=== PATIENT | female | born 1950 | race Caucasian/White ===

== ENCOUNTER → 2016-11-16 | Outpatient (CLI) | payer OTHER, BC ==
[~2016-11-16] MED LIST: ATEN-173 PO; CALC500C50 PO; CITA10TA8 PO; ESTCR PV; HYDR25TA5 PO; MULT-506 PO; NAPR220T PO; OMEP20CA9 PO
[2016-11-16 16:39] LABS: ALT/SGPT 31 U/L (12-78); BLOOD UREA NITROGEN 17 mg/dl (7-18); BUN/CREATININE RATIO 17.9 (10-20); CALCIUM 8.8 mg/dl (8.5-10.1); CARBON DIOXIDE 31 mmol/L (21-32); CHLORIDE 106 mmol/L (98-107); CHOLESTEROL 151 mg/dl (0-200); CREATININE 0.94 mg/dl (0.60-1.20); GLUCOSE 126 mg/dl (70-99); POTASSIUM 3.6 mmol/L (3.5-5.1); SODIUM 143 mmol/L (136-145)
[2016-11-16 16:42] LABS: ALB/GLOB RATIO 1.1 (0.9-2); ALKALINE PHOSPHATASE 88 U/L (45-117); AST/SGOT 21 U/L (15-37); CHOLESTEROL/HDL RATIO 2.7; HDL CHOLESTEROL 55 mg/dl; LDL CHOLESTEROL CALCULATED 65 mg/dl; TRIGLYCERIDES 153 mg/dl (0-150); VERY LOW DENSITY LIPOPROT CALC 31 mg/dl
[2016-11-17 06:02] LABS: ESTIMATED AVERAGE GLUCOSE 134 mg/dl; HA1C FLAG Normal (Normal)
--- NOTE | 2016-11-21 11:34 | CODING QUERY MEDICAL NECESSITY ---
SUPPORTING DIAGNOSIS NEEDED A supporting diagnosis is required for the test/procedure performed on this patient in order for us to be reimbursed by the patient's insurance. Please provide a supporting diagnosis for the following test/procedure listed below next to the test name along with your signature. *If there is no additional diagnosis for this patient that would support the following test/procedure please document that below next to the test/procedure. Test(s)/Procedure(s) that require a supporting diagnosis: DOS 11/16 * Hba1c DIAGNOSIS: Provider Signature: Date: Thank you Heather [facility] Once completed, please kindly fax back to [phone] For questions please call [phone]
== END | disposition home or self-care (01) ==
LOC: C.LABBFT 11:39
PROVIDERS: ATTEND Family Medicine
DX: E78.5 Hyperlipidemia, unspecified (principal); R73.03 Prediabetes; I10 Essential (primary) hypertension; Z11.59 Encounter for screening for other viral diseases

== ENCOUNTER → 2017-08-23 | Outpatient (CLI) | payer OTHER, BC ==
[2017-08-23 16:27] LABS: BASO % 0.7 %; BASO ABS # 0.04 K/uL (0-0.2); EOS % 4.6 %; EOS ABS # 0.28 K/uL (0-0.5); HEMATOCRIT 40.5 % (37-47); HEMOGLOBIN 13.3 g/dL (12.0-16.0); IG# 0.02 K/uL (0.00-0.02); LYMPH % 27.4 %; LYMPH ABS # 1.65 K/uL (1.2-3.4); MEAN CELL VOLUME 91.2 fL (80-100); MEAN CORPUSCULAR HGB CONC 32.8 g/dl (32-36); MEAN PLATELET VOLUME 11.5 fL (7.4-10.4); MONO % 5.8 %; MONO ABS # 0.35 K/uL (0.11-0.59); NEUT % 61.2 %; NEUT ABS # 3.69 K/uL (1.4-6.5); PLATELET COUNT 222 K/uL (130-400); RED CELL DISTRIBUTION WIDTH CV 13.2 % (11.5-14.5); RED CELL DISTRIBUTION WIDTH SD 43.5 fL (36.4-46.3); WHITE BLOOD COUNT 6.03 K/uL (4.8-10.8)
[2017-08-23 16:35] LABS: ALBUMIN 3.4 gm/dl (3.4-5.0); ALT/SGPT 29 U/L (12-78); BLOOD UREA NITROGEN 13 mg/dl (7-18); CARBON DIOXIDE 30 mmol/L (21-32); CHOLESTEROL 121 mg/dl (0-200); CREATININE 0.87 mg/dl (0.60-1.20); GLUCOSE 118 mg/dl (70-99); POTASSIUM 3.9 mmol/L (3.5-5.1); SODIUM 140 mmol/L (136-145)
[2017-08-23 16:38] LABS: ALKALINE PHOSPHATASE 89 U/L (45-117); AST/SGOT 28 U/L (15-37); LDL CHOLESTEROL CALCULATED 39 mg/dl; TOTAL PROTEIN 6.7 gm/dl (6.4-8.2)
[2017-08-24 06:30] LABS: HEMOGLOBIN A1C 6.5 % (4.5-5.6)
== END | disposition home or self-care (01) ==
LOC: C.LABBFT 13:14
PROVIDERS: ATTEND Physician Assistant Medical
DX: I10 Essential (primary) hypertension (principal); E78.5 Hyperlipidemia, unspecified; R73.03 Prediabetes; K21.9 Gastro-esophageal reflux disease without esophagitis

== ENCOUNTER → 2017-08-27 | Outpatient (CLI) | payer OTHER, BC ==
--- NOTE | 2017-08-27 11:15 | DIAGNOSTIC IMAGING REPORT ---
LEFT LOWER EXTREMITY VENOUS DOPPLER CLINICAL HISTORY: Left lower extremity pain following fall. COMPARISON STUDY: No previous studies for comparison. TECHNIQUE: Sonography of the deep venous system of the left lower extremity was performed. Compression and augmentation were evaluated. FINDINGS: The left common femoral, superficial femoral and popliteal veins were compressible. Augmentation was normal. Flow was shown within the deep calf vessels. Note was made of an 8.9 cm subcutaneous focus of increased echogenicity within the medial left calf at site of trauma. IMPRESSION: 1. No evidence of deep venous thrombus within the left lower extremity. 2. 8.9 cm subcutaneous focus of increased echogenicity of the medial left calf at site of trauma which suggests a contusion. Electronically signed by: Maxime Jha M.D. 08/27/2017 11:14 AM Dictated Date/Time: 08/27/2017 11:13 AM
== END | disposition home or self-care (01) ==
LOC: C.ULTRBC 10:48
PROVIDERS: ATTEND Physician Assistant Medical
DX: M79.605 Pain in left leg (principal); W19.XXXA Unspecified fall, initial encounter

== ENCOUNTER → 2017-11-21 | Outpatient (CLI) | payer OTHER, BC ==
[2017-11-21 13:11] LABS: HEMOGLOBIN A1C 6.2 % (4.5-5.6)
== END | disposition home or self-care (01) ==
LOC: C.LABBFT 10:40
PROVIDERS: ATTEND Physician Assistant Medical
DX: R73.03 Prediabetes (principal)

== ENCOUNTER 2018-09-29 05:19 | Observation (INO) ==
--- NOTE | 2018-09-12 09:14 | PAT Medication Instructions ---
Medication Instructions Date of Service September 12, 2018 Home Medications bcsxeyj-hpuvqtxlzkzto-ikxjhvbv 2 tab PO Q6H NEEDED atenolol 25 mg PO QPM atorvastatin [Lipitor] 10 mg PO PM calcium carbonate [Tums Ultra] 400 mg PO QPM citalopram [Celexa] 20 mg PO QAM estradiol [Estrace] 1 g VAGINAL WK hydrochlorothiazide 25 mg PO QAM ibuprofen 200 mg PO QID NEEDED multivitamin, stress formula 1 tab PO QDD naproxen sodium [Aleve] 220 mg PO BID NEEDED omeprazole 20 mg PO QAM Continue as directed estradiol [Estrace] 1 g VAGINAL WK ASK your surgeon for instructions xwaphqz-soitzaghjjrix-iejxcxxs 2 tab PO Q6H NEEDED ibuprofen 200 mg PO QID NEEDED naproxen sodium [Aleve] 220 mg PO BID NEEDED DO NOT take the morning of surgery hydrochlorothiazide 25 mg PO QAM Take morning of surgery With a small sip of water, OTHERWISE NOTHING TO EAT OR DRINK AFTER MIDNIGHT: omeprazole 20 mg PO QAM citalopram [Celexa] 20 mg PO QAM Take evening before surgery multivitamin, stress formula 1 tab PO QDD atenolol 25 mg PO QPM atorvastatin [Lipitor] 10 mg PO PM calcium carbonate [Tums Ultra] 400 mg PO QPM Other Notes If you have any questions please call us at [phone] or [phone] or [phone] or [phone]
--- NOTE | 2018-09-12 10:49 | Anesthesiology Consultation ---
Date of Service September 12, 2018 Assessment & Plan (1) Encounter for pre-operative examination: Chart Review Chart Review: Acceptable Risk for Surgery and Patient seen in Pre Admission Testing Consults Requested none Teaching & Discussion Pre-Anesthesia Teaching/Discussion Notes: Instructed NPO after midnight before surgery, except medications with 15 cc of water. Medication instructions provided according to the PAT guidelines. History Surgery Operation Date: 09/29/18 07:00 Proposed Procedures p Laparoscopic Ventral Hernia Repair - Robin Egan MD, FACS Height/Weight Height: 5 ft 1 in Weight: 97.1 kg Allergies Allergy/AdvReac Type Severity Reaction Status Date / Time Penicillins Allergy Intermediate "turns red" Verified 09/08/18 13:44 shellfish derived Allergy Intermediate throat Verified 09/08/18 13:44 swelling hydrocodone Allergy Unknown ITCHY Verified 09/08/18 13:44 lisinopril [From Prinivil] AdvReac Unknown Cough Verified 09/08/18 13:44 Medications Home Medications Medication Instructions Recorded Confirmed Last Taken rnliboc-fraeihsndzwuh-ebzfirrk 2 tab PO Q6H PRN 09/08/18 09/08/18 Unknown [Excedrin Extra Strength] atenolol 25 mg PO QPM 09/08/18 09/08/18 Unknown atorvastatin [Lipitor] 10 mg PO PM 09/08/18 09/08/18 Unknown calcium carbonate [Tums Ultra] 400 mg PO QPM 09/08/18 09/08/18 Unknown citalopram [Celexa] 20 mg PO QAM 09/08/18 09/08/18 Unknown estradiol [Estrace] 1 g VAGINAL WK 09/08/18 09/08/18 Unknown hydrochlorothiazide 25 mg PO QAM 09/08/18 09/08/18 Unknown ibuprofen 200 mg PO QID PRN 09/08/18 09/08/18 Unknown multivitamin, stress formula 1 tab PO QDD 09/08/18 09/08/18 Unknown naproxen sodium [Aleve] 220 mg PO BID PRN 09/08/18 09/08/18 Unknown omeprazole 20 mg PO QAM 09/08/18 09/08/18 Unknown Past Medical History Medical History Anxiety GERD (gastroesophageal reflux disease) Hypertension Pre-diabetes Past Surgical History Surgical History History of section History of hysterectomy NAGI BSO History of laparotomy 1 week after due to peritonitis History of open reduction and internal fixation (ORIF) procedure L ANKLE Hx of appendectomy Hx of cholecystectomy Hx of tonsillectomy Past Anesthesia History No Hx of Anesthesia Complications and No Family Hx of Anesthesia Complications History of PONV No Motion Sickness Screening History of Motion Sickness: No Social History Smoking Status: Never smoker Do You Dip or Chew Tobacco: No Hx Alcohol Use: Yes Alcohol type: wine alcohol intake frequency: a few times a week Hx Substance Use: No substance use type: does not use Exercise / Class Metabolic Activity II 4-5 Yardwork/Stairs/Walk up hill (Able to climb FOS. Denies CP or SOB ( unless carrying heavy objects while climbing stairs).) Review of Systems Patient denies chest pain, shortness of breath, dyspnea on exertion, reflux, cough, wheezing, palpitations. + joint pain (right hip bursitis occasionally) Physical Exam Vital Signs BP: 110/71 P: 57 R: 16 T: 98.5 SPO2: 95% on RA Constitutional + obese ENMT Thyromental Distance: < 3.5 Finger Breadths (3) Mallampati Class: I Neck normal visual inspection and trachea midline; neck extension not limited Respiratory normal respiratory effort Auscultation: lungs clear to auscultation bilaterally Cardiovascular Rate/Rhythm: regular rate and regular rhythm Heart Sounds: no murmur Vessels: no carotid bruit Neurologic moves all extremities Psychiatric Orientation: alert and oriented x 3 Testing Electrocardiogram Date: 09/12/18 Findings: + NSR @ (60) and + no change from (02/20/15) Chest X-Ray Date: 09/12/18 Findings: + NAD Other Testing CT OF THE ABDOMEN AND PELVIS WITH CONTRAST 08/19/18 IMPRESSION: 1. Upper ventral hernia which contains a small portion of transverse colon. No resultant bowel obstruction. 2. Small fat-containing supraumbilical hernia and umbilical hernias. 3. Fatty infiltration of the liver. 4. Small hiatal hernia. Laboratory Results 09/12/18 11:07 09/12/18 11:07
--- NOTE | 2018-09-12 11:27 | XRay Report ---
XR chest Pre-admission PA/Lat CLINICAL HISTORY: PAT preoperative evaluation COMPARISON STUDY: 02/20/2015 FINDINGS: The bones soft tissues and hemidiaphragms are normal. The cardiomediastinal silhouette is n ormal. The lungs are clear. The pulmonary vasculature is normal. IMPRESSION: Negative chest. The above report was generated using voice recognition software. It may contain grammatical, syntax or spelling errors. Electronically signed by: Ravi Fox M.D. 09/12/2018 11:26 AM
[2018-09-12 11:56] LABS: Basophils # (auto) 0.04 K/uL (0-0.2); Basophils % (auto) 0.6 %; Eosinophils # (auto) 0.17 K/uL (0-0.5); Eosinophils % (auto) 2.7 %; Hematocrit (blood only) 42.8 % (37-47); Immature Granulocytes # (auto) 0.01 K/uL (0.00-0.02); Immature Granulocytes % (auto) 0.2 %; Lymphocytes # (auto) 1.48 K/uL (1.2-3.4); Lymphocytes % (auto) 23.8 %; Mean Corpuscular Hgb Conc 32.7 g/dL (32-36); Mean Corpuscular Volume 90.5 fL (80-100); Mean Platelet Volume 11.8 fL (7.4-10.4); Monocytes # (auto) 0.45 K/uL (0.11-0.59); Monocytes % (auto) 7.2 %; Neutrophils # (auto) 4.08 K/uL (1.4-6.5); Neutrophils % (auto) 65.5 %; Platelet Count 209 K/uL (130-400); RDW Coefficient of Variation 13.1 % (11.5-14.5); RDW Standard Deviation 43.2 fL (36.4-46.3); Red Blood Count 4.73 M/uL (4.2-5.4); White Blood Count 6.23 K/uL (4.8-10.8)
[2018-09-12 12:06] LABS: Calcium 8.8 mg/dl (8.5-10.1); Creatinine Clr Calc Pharmacy 61.5 ml/min; Est GFR (African American) 73.6; Est GFR (Non-African American) 63.5; Potassium 3.7 mmol/L (3.5-5.1)
[2018-09-29] MEDS ORDERED: CLINDAMYCIN 900 MG / 50ML D5W IV SCH (06:00)
[2018-09-29] MEDS ORDERED: LR 15ML/HR IV SCH (06:00)
[2018-09-29] MEDS ORDERED: PROPOFOL IV EMULSION 10 MG/ML 20 ML VIAL IV ONE (06:44)
[2018-09-29] MEDS ORDERED: NEOSTIGMINE METHYLSULFATE 5 MG/5 ML SYR ONE (06:44)
[2018-09-29] MEDS ORDERED: DEXAMETHASONE SOD INJ 4 MG/ML VIAL ONE (06:44)
[2018-09-29] MEDS ORDERED: GLYCOPYRROLATE 0.2 MG/ML VIAL ONE ×2 (06:44→08:01)
[2018-09-29] MEDS ORDERED: LIDOCAINE HCL 2% 2 ML VIAL/AMP(20MG/ML) INFIL ONE (06:44)
[2018-09-29] MEDS ORDERED: ROCURONIUM BROMIDE 10 MG/ML 5 ML VIAL ONE (06:44)
[2018-09-29] MEDS ORDERED: ONDANSETRON INJ 2 MG/ML 2 ML VIAL ONE (06:44)
[2018-09-29] MEDS ORDERED: MIDAZOLAM HCL 1 MG/ML 2ML VIAL ONE (06:45)
[2018-09-29] MEDS ORDERED: fentaNYL citrate 100 MCG/2 ML VIAL ONE (06:45)
[2018-09-29] MEDS ORDERED: BUPIVACAINE 0.5 % 5 MG/1 ML MPF 30ML VIAL ONE (07:12)
[2018-09-29] MEDS ORDERED: FLUMAZENIL 0.1 MG/1 ML 10 ML VIAL IV PRN (07:46)
[2018-09-29] MEDS ORDERED: ePHEDrine sulfate 50 MG/ML AMP IV PRN (07:46)
[2018-09-29] MEDS ORDERED: NALOXONE HCL 0.4 MG/1 ML VIAL/CARP IV PRN (07:46)
[2018-09-29] MEDS ORDERED: fentaNYL citrate 100 MCG/2 ML VIAL IV PRN (07:46)
[2018-09-29] MEDS ORDERED: LABETALOL HCL IV 5 MG/ML 20ML IV PRN (07:46)
[2018-09-29] MEDS ORDERED: PROMETHAZINE HCL 12.5 MG in SODIUM CHLORIDE 0.9% 50 ML IV PRN ×2 (07:46→09:36)
[2018-09-29] MEDS ORDERED: ATROPINE SULFATE 0.1 MG/ML 10ML SYR IV PRN (07:46)
[2018-09-29] MEDS ORDERED: ONDANSETRON INJ 2 MG/ML 2 ML VIAL IV PRN ×2 (07:46→09:36)
[2018-09-29] MEDS ORDERED: KETOROLAC 30 MG/ML VIAL ONE (08:01)
--- NOTE | 2018-09-29 08:11 | Operative Report ---
Post Operative Report Pre & Post Diagnosis Operation Date: 09/29/18 07:00 Pre-Op Diagnosis: Ventral Hernia Post-Op Diagnosis: Ventral Hernia same Procedure Operation Date: 09/29/18 07:00 Actual Procedures p Laparoscopic Ventral Hernia Repair with Mesh(Not Applicable) - Robin Egan MD, FACS same Surgeon Robin Egan MD, FACS Field Installation Technician Dianne Solorio Estimated Blood Loss 20 Findings Consistent with Post-Op Diagnosis Specimens none Description of Procedure see dictated note I attest to the content of the Intraoperative Record and any orders documented therein. Any exceptions are noted below.
[2018-09-29] MEDS ORDERED: ACETAMINOPHEN 1,000 MG/100 ML VIAL IV ONE (08:15)
--- NOTE | 2018-09-29 08:40 | Operative Report ---
DATE OF OPERATION: 09/29/2018 NAME OF OPERATION: Laparoscopic ventral hernia repair with lysis of adhesions. PREOPERATIVE DIAGNOSIS: Ventral hernia. POSTOPERATIVE DIAGNOSIS: Same. STAFF SURGEON: Robin Egan MD MONITORING AND EVALUATION ADVISOR: Cyril Solorio PA-C ANESTHESIA: General. DESCRIPTION OF PROCEDURE: The patient was brought in the operating room and placed on the operating table in supine position. Her abdomen was prepped and draped in the usual fashion. Pneumatic stockings, orogastric tube were placed. Incision was made in the left upper quadrant using 0.5% plain Marcaine to anesthetize all incisions. Dissection was carried down to the fascia, placing a Veress needle producing pneumoperitoneum. An 11-mm port was placed at this level. At this point, a camera was passed. The patient did have tissue within the hernia sac which was suspected to be omentum and colon. There was a small area of adhesion cephalad which was taken down. I did place two 5-mm ports on the left side and right side under visualization. Then using both blunt and sharp dissection, lysis of adhesions was performed with some difficulty reducing the omentum and colon from the hernia sac. After this was completed, it appeared there was approximately a 3- to 4-cm defect. We chose a 12.5 cm piece of Surgimesh, placed it into the abdomen. The polypropylene was toward the fascia, the silicone toward the bowel. It was brought up to the defect using the suture passer through the hernia sac and the Prolene suture on the mesh. At this point, it was tacked in 2 rows, outer and inner using an absorbable tacker. With good placement, all ports were removed, the pneumoperitoneum reduced. The fascia in the left upper quadrant closed using 0 Vicryl suture, then the skin reapproximated using 5-0 Prolene and 4-0 nylon. My facility assistant, César, helped with prepping, draping, repair of the hernia, and closure of the wounds. I attest to the content of the Intraoperative Record and any orders documented therein. Any exception s are noted below.
--- NOTE | 2018-09-29 08:59 | Anesthesiology Progress Note ---
Date of Service September 29, 2018 Anesthesia Post Procedure Vital Signs Vital Signs: Temp Pulse Pulse Resp BP BP Pulse Ox 09/29/18 08:50 65 13 129/57 L 98 09/29/18 08:40 71 17 111/65 97 09/29/18 08:31 36.6 C 86 24 180/88 H 92 09/29/18 05:41 36.9 C 71 16 165/87 H 97 Pain Intensity Abdomen: Pain Intensity: 4 Notes Mental Status: alert / awake / arousable Patient Amnestic to Procedure: Yes Nausea / Vomiting: adequately controlled Pain: adequately controlled Airway Patency, RR, SpO2: stable & adequate BP & HR: stable & adequate Hydration State: stable & adequate Anesthetic Complications: no major complications apparent
[2018-09-29] MEDS ORDERED: HYDROmorphone INJ 0.5 MG/0.5 ML SYR IV PRN (09:36)
[2018-09-29] MEDS ORDERED: OXYCODONE/ACETAMINOPHEN 5mg/325mg TAB PO PRN (09:36)
[2018-09-29] MEDS ORDERED: hydroCHLOROthiazide 25 MG TAB PO SCH (09:36)
--- NOTE | 2018-09-29 10:14 | Consultation ---
Date of Consultation September 29, 2018 Assessment & Plan (1) Ventral hernia: - S/P Laparoscopic ventral hernia repair on 09/29 - EBL 20 cc - Pain management, DVT prophylaxis, surgical management per primary team Present on Admission?: Yes (2) Essential hypertension: - STABLE - Atenolol 25 mg daily; Hold HCTZ today until renal function assessed tomorrow and likely resume then Present on Admission?: Yes (3) Pre-diabetes: - Diet managed; Last A1c 6.3 - No intervention necessary at this time; recommend to continue monitoring with PCP Present on Admission?: Yes (4) GERD (gastroesophageal reflux disease): - STABLE; Protonix as omeprazole interchange Present on Admission?: Yes (5) Mixed hyperlipidemia: - Lipitor 10 mg daily Present on Admission?: Yes (6) Generalized anxiety disorder: - STABLE; Celexa 20 mg daily Present on Admission?: Yes (7) DVT prophylaxis: SCDs Dispo-likely dc to home tomorrow as per Surgery Supervising Physician Co-Signing Physician Notes PA Supervision Note: I personally saw and examined the patient. I verified all kwok points and agree with ZEINAB Mcmahon with the following exceptions and/or additions: Patient doing well postoperatively. Has minimal soreness in the abdomen. No chest pain or shortness of breath. History reviewed as above. No history of sleep apnea. Vitals reviewed Gen: AAOx3, NAD, obese HEENT: Anicteric sclerae, EOMI CV: RRR no mgr nl S1S2 Pulm: CTAB no wcr Abd: Hypoactive bowel sounds, soft NT ND no masses or hernias, multiple incision sites with dressings in place that are clean dry and intact Ext: No edema, 2+ DP pulses Skin: No rashes, warm/dry Neuro: Full strength throughout 68-year-old female with history as above, here with ventral hernia repair. Doing very well postoperatively Plan outlined as above Expect discharge likely in the next 1-2 days. Hospitalist service will follow along History of Present Illness Reason for Consultation: Medical Management Requesting Physician: Dr. Egan Attending Physician: Robin Egan MD, [facility] History of Present Illness Ms. Quintanilla is a 68 y/o female with PMHx of Pre-Diabetes, HTN, HLD, GERD, and General Anxiety Disorder who is S/P Lap Ventral Hernia Repair on 09/29. Currently she is pain free and tolerated some applesauce at this point. She has been dealing with this hernia for approx. 8 years and reports no pain or strangulation but continued to enlarge. She has diet controlled pre-diabetes which is being monitored by her PCP. Last A1c is 6.3. She denies history of cardiac conditions such as CO/CHF. Denies history of PE/DVT. She verbalizes no complaints at this time. Allergies Allergy/AdvReac Type Severity Reaction Status Date / Time Penicillins Allergy Intermediate "turns red" Verified 09/29/18 05:35 shellfish derived Allergy Intermediate throat Verified 09/29/18 05:35 swelling hydrocodone Allergy Unknown ITCHY Verified 09/29/18 05:35 lisinopril [From Prinivil] AdvReac Unknown Cough Verified 09/29/18 05:35 Home Medications Home Medications Medication Instructions Recorded Confirmed Type reqmvbi-ypewrmfrqqjmk-okxkebyk 2 tab PO Q6H PRN 09/08/18 09/29/18 History [Excedrin Extra Strength] atenolol 25 mg PO QPM 09/08/18 09/29/18 History atorvastatin [Lipitor] 10 mg PO PM 09/08/18 09/29/18 History calcium carbonate [Tums Ultra] 400 mg PO QPM 09/08/18 09/29/18 History citalopram [Celexa] 20 mg PO QAM 09/08/18 09/29/18 History estradiol [Estrace] 1 g VAGINAL WK 09/08/18 09/29/18 History hydrochlorothiazide 25 mg PO QAM 09/08/18 09/29/18 History ibuprofen 200 mg PO QID PRN 09/08/18 09/29/18 History multivitamin, stress formula 1 tab PO QDD 09/08/18 09/29/18 History naproxen sodium [Aleve] 220 mg PO BID PRN 09/08/18 09/29/18 History omeprazole 20 mg PO QAM 09/08/18 09/29/18 History Patient History Medical History Mixed hyperlipidemia Anxiety GERD (gastroesophageal reflux disease) Hypertension Pre-diabetes Surgical History History of section History of hysterectomy NAGI BSO History of laparotomy 1 week after due to peritonitis History of open reduction and internal fixation (ORIF) procedure L ANKLE Hx of appendectomy Hx of cholecystectomy Hx of tonsillectomy Family History Mother Diabetes Brother Diabetes Grandfather Cancer, colon Social History Preferred Language: Tajik Communication Ability: Effective Beliefs That Will Affect Care: None Current Living Situation: Spouse Current Living Situation Comment: [facility] Other Information That Helps Us Care for You: No Feels Safe at Home: Yes Safety Concerns: Feels Safe At This Time Smoking Status: Never smoker Hx Alcohol Use: Yes Hx Substance Use: No Review of Systems REVIEW OF SYSTEMS General/Constitutional: Denies fever/chills, fatigue, weakness ENT: Denies visual changes, nasal drainage, hearing loss, sore throat, trouble swallowing Cardiovascular: Denies chest pain, palpitations, edema Respiratory: Denies cough, sputum, SOB, wheezing, orthopnea GI: Denies nausea, vomiting, abdominal pain, constipation, diarrhea, melena/hematochezia : Denies dysuria, frequency Musculoskeletal: Denies joint/muscle aches, weakness, swelling Neurologic: Denies dizziness/lightheadedness, numbness/tingling, weakness Hematologic/Lymphatic: Denies bleeding/clotting abnormalities Skin: Denies rash, itch Physical Exam Vital Signs (Past 24 Hours): Last Vital Signs Temp 36.5 C 09/29/18 09:10 Pulse 60 09/29/18 09:20 Resp 13 09/29/18 09:20 BP 105/64 09/29/18 09:20 Pulse Ox 95 09/29/18 09:20 Physical Exam: PHYSICAL EXAM General Appearance: WDWN in NAD who is A&O x 3 HEENT: Head is normocephalic/atraumatic; sclera anicteric; Hearing grossly intact; Mucous membranes moist; Pharynx negative for exudate/lesions Neck: Supple; Trachea midline; Neg JVD Heart: RRR with no M/G/R Lungs: CTA in all lung mccann bilaterally; Respirations unlabored; Neg accessory muscle use Abdomen: Soft, non-tender, non-distended; Positive BS x 4 quadrants; multiple laparoscopic incisions with dressings present C/D/I with only scant dried blood on LLQ dressing Extremities: Capillary refill < 2 seconds; Neg cyanosis or edema Neurological: Speech clear; Gross motor/sensory function intact; Neg focal neurologic deficits Psychiatric: Appropriate mood/affect Skin: Normal Color; Warm/Dry; Neg rashes, ecchymosis (1) GERD (gastroesophageal reflux disease) Esophagitis presence: esophagitis presence not specified Qualified Code(s): K21.9 - Gastro-esophageal reflux disease without esophagitis
[2018-09-29] MEDS: DOCUSATE SODIUM/SENNA 50/8.6MG TAB PO SCH ×2 (10:46→20:36)
[2018-09-29] MEDS: SODIUM CHLORIDE 0.9% 1000ML 1,000 ML IV SCH (10:47)
[2018-09-29] MEDS: CITALOPRAM 20 MG TAB PO SCH (10:49)
[2018-09-29] MEDS: MAGNESIUM HYDROXIDE SUSP 30 ML UDC PO SCH ×2 (10:49→20:43)
[2018-09-29] MEDS: PANTOprazole 40 MG TAB PO SCH (10:50)
[2018-09-29] MEDS: OXYCODONE/ACETAMINOPHEN 5mg/325mg TAB PO PRN ×2 (13:18→21:24)
[2018-09-29] MEDS: CEFAZOLIN 2000MG 2,000 MG/15 ML SYR IV SCH ×2 (13:19→21:18)
[2018-09-29] MEDS ORDERED: ATORVASTATIN 10 MG TAB PO SCH (21:00)
[2018-09-29] MEDS ORDERED: ATENOLOL 25 MG TABLET PO SCH (21:00)
[2018-09-30 03:25] VITALS: O2SAT 96
[2018-09-30] MEDS: SODIUM CHLORIDE 0.9% 1000ML 1,000 ML IV SCH (05:32)
[2018-09-30] MEDS: CEFAZOLIN 2000MG 2,000 MG/15 ML SYR IV SCH (05:32)
[2018-09-30 05:41] LABS: Basophils # (auto) 0.01 K/uL (0-0.2); Basophils % (auto) 0.1 %; Hematocrit (blood only) 35.5 % (37-47); Hemoglobin 11.6 g/dL (12.0-16.0); Immature Granulocytes # (auto) 0.04 K/uL (0.00-0.02); Immature Granulocytes % (auto) 0.4 %; Lymphocytes # (auto) 0.99 K/uL (1.2-3.4); Mean Corpuscular Hgb Conc 32.7 g/dL (32-36); Mean Corpuscular Volume 92.2 fL (80-100); Mean Platelet Volume 11.4 fL (7.4-10.4); Monocytes # (auto) 0.68 K/uL (0.11-0.59); Monocytes % (auto) 6.2 %; Neutrophils # (auto) 9.32 K/uL (1.4-6.5); Neutrophils % (auto) 84.3 %; Platelet Count 197 K/uL (130-400); RDW Standard Deviation 43.4 fL (36.4-46.3); Red Blood Count 3.85 M/uL (4.2-5.4); White Blood Count 11.04 K/uL (4.8-10.8)
[2018-09-30 06:13] LABS: Albumin Level 3.1 gm/dl (3.4-5.0); BUN Creatinine Ratio 18.5 (10-20); Creatinine Clr Calc Pharmacy 55.5 ml/min; Est GFR (Non-African American) 56.1; Magnesium 2.7 mg/dl (1.8-2.4); Potassium 4.3 mmol/L (3.5-5.1)
[2018-09-30 06:16] LABS: Bilirubin,Total 0.3 mg/dl (0.2-1); Phosphorus 3.2 mg/dl (2.5-4.9); Total Protein 6.1 gm/dl (6.4-8.2)
--- NOTE | 2018-09-30 07:04 | Discharge Summary ---
PRINCIPAL DIAGNOSIS: Ventral hernia. PROCEDURES: The patient underwent laparoscopic ventral hernia repair. HISTORY OF PRESENT ILLNESS AND HOSPITAL COURSE: The patient was brought into the hospital on 09/29/2018, where she underwent elective ventral hernia repair with laparoscopy. She tolerated the procedure very well, has done well overnight and is felt stable for discharge to home today to be followed in the surgical clinic next week.
[2018-09-30 07:17] VITALS: BP 123/69; TEMP 97.5
[2018-09-30] MEDS: DOCUSATE SODIUM/SENNA 50/8.6MG TAB PO SCH (08:45)
[2018-09-30] MEDS: PANTOprazole 40 MG TAB PO SCH (08:45)
[2018-09-30] MEDS: CITALOPRAM 20 MG TAB PO SCH (08:45)
[2018-09-30] MEDS: MAGNESIUM HYDROXIDE SUSP 30 ML UDC PO SCH (08:46)
[2018-09-30 09:20] VITALS: PULSE 88
--- NOTE | 2018-09-30 09:48 | Anesthesiology Progress Note ---
Date of Service September 30, 2018 Anesthesia Post Procedure Vital Signs Vital Signs: Temp Pulse Pulse Pulse Resp BP Pulse Ox 09/30/18 09:16 36.4 C L 64 88 69 18 123/69 96 09/30/18 07:16 36.4 C L 69 18 123/69 96 09/30/18 03:24 36.6 C 83 18 109/57 L 96 09/29/18 23:04 36.7 C 76 16 116/66 93 09/29/18 20:34 89 123/73 09/29/18 19:33 36.8 C 88 18 134/70 91 09/29/18 15:36 36.9 C 74 16 125/73 92 09/29/18 12:30 36.2 C L 64 16 112/68 92 09/29/18 11:30 36.6 C 64 16 100/62 91 09/29/18 10:30 36.4 C L 57 L 16 102/63 92 09/29/18 10:15 36.5 C 61 18 111/68 92 Pain Intensity Abdomen: Pain Intensity: 2 Notes Mental Status: alert / awake / arousable and participated in evaluation Patient Amnestic to Procedure: Yes Nausea / Vomiting: see Notes below Pain: adequately controlled Airway Patency, RR, SpO2: stable & adequate BP & HR: stable & adequate Hydration State: stable & adequate Anesthetic Complications: no major complications apparent and Pt Satisfied with anesthetic care
== END 2018-09-30 10:40 | disposition home or self-care (01) ==
LOC: 3N 05:19 → ASU 05:19